=== PATIENT | female | born 1995 | race African-American/Black ===

== ENCOUNTER 2018-05-18 09:16 | Emergency (ER) | payer MEDICAID ==
[~2018-05-18] VITALS: Ht 170.2 cm; Wt 86.0 kg
[2018-05-18 15:40] VITALS: BP 132/88
== END 2018-05-18 15:41 | disposition home or self-care (01) ==
LOC: ER 09:16
DX: S63.502A Unspecified sprain of left wrist, initial encounter (principal); R03.0 Elevated blood-pressure reading, without diagnosis of hypertension; X50.0XXA Overexertion from strenuous movement or load, initial encounter; Y93.89 Activity, other specified; Y92.238 Other place in hospital as the place of occurrence of the external cause
CPT/HCPCS: 73110; 81025; 99284

== ENCOUNTER 2018-08-23 07:33 | Emergency (ER) | payer MEDICAID ==
[~2018-08-23] VITALS: Ht 170.2 cm; Wt 84.2 kg
[2018-08-23 09:28] LABS: CLARITY URINE CLEAR (CLEAR); COLOR URINE ORANGE (YELLOW); KETONES URINE NEGATIVE (NEGATIVE); LEUKOCYTE ESTERASE URINE 3+ (NEGATIVE); NITRITE URINE NEGATIVE (NEGATIVE); OCCULT BLOOD URINE NEGATIVE (NEGATIVE); PH URINE 7.5 (4.5-8.0); PROTEIN URINE NEGATIVE (NEGATIVE); SPECIFIC GRAVITY URINE 1.013 (1.005-1.030)
[2018-08-23 10:10] VITALS: BP 125/75
== END 2018-08-23 11:02 | disposition home or self-care (01) ==
LOC: ER 08:04
DX: B37.3 Candidiasis of vulva and vagina (principal)
CPT/HCPCS: 87210; 99284